=== PATIENT | male | born 1950 | race Caucasian/White ===

== ENCOUNTER → 2023-11-01 11:10 | Outpatient (REF) | payer MEDICARE, OTHER, SELFPAY | LOC: DHCBC HW 11:10 | PROVIDERS: ATTENDING PHYSICIAN Internal Medicine Cardiovascular Disease; FAMILY PHYSICIAN Family Medicine | DX: I77.89 Other specified disorders of arteries and arterioles (principal); I35.1 Nonrheumatic aortic (valve) insufficiency | CPT/HCPCS: 93306 ==

== ENCOUNTER → 2023-12-09 13:14 | Outpatient (REF) | payer MEDICARE, OTHER, SELFPAY | LOC: HWRAD 13:14 | PROVIDERS: ATTENDING PHYSICIAN Thoracic Surgery (Cardiothoracic Vascular Surgery); FAMILY PHYSICIAN Family Medicine | DX: I35.1 Nonrheumatic aortic (valve) insufficiency (principal) | CPT/HCPCS: 71275; 74174; Q9967 ==

== ENCOUNTER 2023-12-20 07:09 | Day surgery (SDC) | payer MEDICARE, OTHER, SELFPAY ==
[2023-12-20] VITALS (13 sets, daily range): BP systolic 97–142; BP diastolic 37–54; BMI 25.7
[2023-12-20] MEDS: NSS 237 ML IV (07:37)
--- NOTE | 2023-12-20 09:14 | ITS.CL.CATH ---
[facility] - Catheterization
Cardiac Catheterization
Procedure Report:
CARDIAC CATHETERIZATION REPORT
Date of Procedure: 12/20/2023
Referring: Albaro Reid MD
Indication: Severe aortic insufficiency with plan for AVR
HEMODYNAMIC DATA
AO: 126/52
LV: 126/19
LEFT VENTRICULOGRAPHY: Normal left ventricular wall motion with visually estimated EF 55-60%
ASCENDING AORTOGRAPHY: There is mild dilation of the aortic root. There is 4+ eccentric AI
CORONARY ANGIOGRAPHY
Dominance: Right
Left Main: Mild luminal irregularities
LAD: Moderately calcified vessel with 30-40% stenosis distal to the takeoff of the large D1. D1 has 50% ostial stenosis
Circumflex: Normal
RCA: Dominant with trivial luminal irregularities
Closure Device: None-the procedure was performed via the right radial artery. The Antoine's test was normal prior to the procedure.
Radiation (mGy): 271
DAP (cm2.Gy): 21.6
Fluoroscopy time: 4.1 minutes
CONCLUSIONS
1: Normal left ventricular function with EF 55-60%
2: Mild dilation of the aortic root with severe (4+) aortic insufficiency
3. Mild CAD as described
4. Will discuss results of procedure with care team
5. Long-term aspirin and statin given CAD. Goal LDL less than 70
Copy to: Albaro Reid MD, Olu Leal MD, Segundo Lyle,
Segundo Benitez MD, [facility], [facility]
[2023-12-20] MEDS: NSS 1000 IV (09:35)
== END 2023-12-20 12:06 | disposition home or self-care (01) ==
LOC: CATH 07:09
PROVIDERS: ATTENDING PHYSICIAN Internal Medicine Cardiovascular Disease; FAMILY PHYSICIAN Family Medicine; OTHER PHYSICIAN Internal Medicine Cardiovascular Disease
DX: I35.1 Nonrheumatic aortic (valve) insufficiency (principal); I77.810 Thoracic aortic ectasia; I25.10 Atherosclerotic heart disease of native coronary artery without angina pectoris; I25.84 Coronary atherosclerosis due to calcified coronary lesion; Z79.82 Long term (current) use of aspirin
CPT/HCPCS: 93458; 93567; C1894; Q9967

== ENCOUNTER → 2024-05-22 11:02 | Outpatient (REF) | payer MEDICARE, OTHER, SELFPAY | LOC: HWRCS 11:02 | PROVIDERS: ATTENDING PHYSICIAN Internal Medicine Cardiovascular Disease; FAMILY PHYSICIAN Family Medicine | DX: I35.1 Nonrheumatic aortic (valve) insufficiency (principal); I77.810 Thoracic aortic ectasia | CPT/HCPCS: 93306 ==

== ENCOUNTER 2024-06-25 04:56 | Inpatient (IN) | payer MEDICARE, OTHER, SELFPAY ==
--- NOTE | 2024-06-08 13:27 | CM ---
Met with and Mrs. Gonzáles in [facility]. He states prior to admission he resides with his spouse in a two story home without any steps to enter. He states he has a full flight of steps to get to bedroom/full bathroom. He has a powder room on the
first floor. He states prior to admission he was independent with ambulation and adls. He states he does not have any DME in the home. He states he has a prescription plan. The discharge plan is to return home with his spouse and a home visit by
the Transitional Care Nurse when medically stable.
We reviewed pre-op and post-op routines. We reviewed the shower instructions. He has the soap, written instructions and the Cardiothoracic Surgery Educational Booklet. We also reviewed the restrictions including sternal precautions and driving
restrictions. We discussed a home visit by the Transitional Care Nurse. He is agreeable to the visit. The plan is for AVR on Tuesday06/25/24.
[2024-06-08 13:31] LABS: Urine Albumin Negative (Neg - Trace); Urine Bilirubin Negative (Negative); Urine Character Clear (Clear); Urine Color Yellow; Urine Glucose Negative (Negative); Urine Ketone Negative (Negative); Urine Leukocyte Negative (Negative); Urine Nitrite Negative (Negative); Urine Occult Blood Negative (Negative); Urine Specific Gravity 1.005 (<1.030); Urine Urobilinogen Negative (Neg - 1+)
[2024-06-08 13:37] LABS: % Basophils 0.4 % (0-2); % Eosinophils 2.4 % (0-6); % Immature Granulocytes 0.2 % (0-0.5); % Lymphocytes 33.7 % (20.5-51.1); % Neutrophils 53.3 % (42.2-75.2); Absolute Eosinophils 0.1 10^3/uL (0-0.7); Absolute Lymphocytes 1.5 10^3/uL (1.2-3.4); Absolute Monocytes 0.5 10^3/uL (0.1-0.6); Absolute Neutrophils 2.4 10^3/uL (1.4-6.5); Hematocrit 41.8 % (39.0-52.0); Hemoglobin 14.5 g/dL (13.0-18.0); Mean Corp Hgb Conc. 34.7 g/dL (33.0-37.0); Mean Corpuscular Hgb 29.8 pg (27.0-31.0); Mean Corpuscular Volume 85.8 fL (80.0-94.0); Mean Platelet Volume 8.3 fL (7.4-10.4); Nucleated Red Blood Cells % 0 % (-); Platelet Count 209 10^3/uL (130-400); Red Blood Cell Count 4.87 10^6/uL (4.70-6.10); Red Cell Dist. Width 13.8 % (11.5-14.5); White Blood Cell Count 4.5 10^3/uL (4.8-10.8)
[2024-06-08 13:47] LABS: APTT 28.6 Sec (23.4-35.0); INR 1.11; PT 14.1 Sec (11.4-14.6)
[2024-06-08 13:58] LABS: Glycohemoglobin (HgbA1c) 5.2 % (4.0-5.6)
[2024-06-08 14:09] LABS: ALT (SGPT) 25 U/L (0-50); AST (SGOT) 32 U/L (17-59); Albumin 4.3 g/dl (3.5-5.0); Alkaline Phosphatase 71 U/L (38-126); Blood Urea Nitrogen 19 mg/dl (9-20); Calcium 9.5 mg/dl (8.4-10.2); Carbon Dioxide 29 mmol/L (22-30); Chloride 101 mmol/L (98-107); Direct Bilirubin 0.2 mg/dl (0.0-0.4); Glucose 80 mg/dl (70-99); Potassium 4.3 mmol/L (3.5-5.1); Sodium 139 mmol/L (135-145); Total Bilirubin 1.2 mg/dl (0.2-1.3); Total Protein 7.1 g/dl (6.3-8.2); eGFR > 60.00
[2024-06-25] VITALS (7 sets, daily range): BP systolic 98–151; BP diastolic 50–65
--- NOTE | 2024-06-25 06:05 | W.CVOR.SURPR ---
CVOR Surgeon Immed Pre Op
-
I have examined this patient prior to performance of the scheduled procedure.
The patient's condition is unchanged from the time of the dictated/written History and
Physical and the patient is able to undergo the scheduled procedure.
Sternotomy AVR (bio) + STEPHANY Clip
[2024-06-25] MEDS: LOPRESSOR 25 MG PO (06:10)
[2024-06-25] MEDS: MAGNESIUM OXIDE 500 MG PO (06:10)
[2024-06-25] MEDS: BACTROBAN 2% OINTMENT 1 APPLIC NASAL ×2 (06:10→19:02)
[2024-06-25] MEDS: PROTONIX 40 MG PO (06:10)
--- NOTE | 2024-06-25 06:40 | PTCARENOTE ---
PT VSS all meds taken, clipped & bathed with chg NPO since midnight, 2 showers at home
[2024-06-25 07:15] LABS: Urine Albumin Negative (Neg - Trace); Urine Bilirubin Negative (Negative); Urine Character Clear (Clear); Urine Color Yellow; Urine Glucose Negative (Negative); Urine Ketone Negative (Negative); Urine Leukocyte Negative (Negative); Urine Nitrite Negative (Negative); Urine Occult Blood Negative (Negative); Urine Specific Gravity 1.005 (<1.030); Urine Urobilinogen Negative (Neg - 1+); Urine pH 6.5 (5.0-9.0)
[2024-06-25 07:29] LABS: ACT+ - POC 107 Seconds (82-134)
[2024-06-25 08:58] LABS: B.E. - POC 4.8 mmol/L; Glucose - POC 139 mg/dl (70-99); HCO3 - POC 29 mmol/L (21-28); Hematocrit - POC 31 % PCV (42-52); Hemodilution- POC Yes; Hemoglobin Calculated - POC 10.7; Ionized Calcium - POC 1.09 mmol/L (1.15-1.33); O2 Saturation %Calculated-POC 99.9 % (94-98); PCO2 - POC 40 mmHg (35-48); PO2 - POC 277 mmHg (83-108); POC Comment CPB; Potassium - POC 4.2 mmol/L (3.5-5.1); Sodium - POC 139 mmol/L (136-145); pH - POC 7.47 (7.35-7.45)
[2024-06-25 09:00] LABS: ACT+ - POC 884 Seconds (82-134)
[2024-06-25 09:12] LABS: ACT+ - POC 669 Seconds (82-134)
[2024-06-25 09:19] LABS: B.E. - POC 3.4 mmol/L; Glucose - POC 144 mg/dl (70-99); HCO3 - POC 28 mmol/L (21-28); Hematocrit - POC 33 % PCV (42-52); Hemodilution- POC Yes; Hemoglobin Calculated - POC 11.3; Ionized Calcium - POC 1.09 mmol/L (1.15-1.33); O2 Saturation %Calculated-POC 99.9 % (94-98); PCO2 - POC 41 mmHg (35-48); PO2 - POC 318 mmHg (83-108); POC Comment CPB; Potassium - POC 4.6 mmol/L (3.5-5.1); Sodium - POC 139 mmol/L (136-145); pH - POC 7.44 (7.35-7.45)
[2024-06-25 09:29] LABS: ACT+ - POC 646 Seconds (82-134)
[2024-06-25 09:48] LABS: ACT+ - POC 539 Seconds (82-134)
[2024-06-25 09:52] LABS: B.E. - POC 3.2 mmol/L; Glucose - POC 136 mg/dl (70-99); HCO3 - POC 28 mmol/L (21-28); Hematocrit - POC 34 % PCV (42-52); Hemodilution- POC Yes; Hemoglobin Calculated - POC 11.5; Ionized Calcium - POC 1.11 mmol/L (1.15-1.33); O2 Saturation %Calculated-POC 99.7 % (94-98); PCO2 - POC 41 mmHg (35-48); PO2 - POC 196 mmHg (83-108); POC Comment WARM; Potassium - POC 4.7 mmol/L (3.5-5.1); Sodium - POC 140 mmol/L (136-145); pH - POC 7.44 (7.35-7.45)
[2024-06-25 09:54] LABS: ACT+ - POC 129 Seconds (82-134)
[2024-06-25 10:17] LABS: B.E. - POC 0.7 mmol/L; Glucose - POC 124 mg/dl (70-99); HCO3 - POC 25 mmol/L (21-28); Hematocrit - POC 32 % PCV (42-52); Hemodilution- POC Yes; Hemoglobin Calculated - POC 10.7; Ionized Calcium - POC 1.38 mmol/L (1.15-1.33); PCO2 - POC 40 mmHg (35-48); PO2 - POC 438 mmHg (83-108); POC Comment POST; Potassium - POC 4.2 mmol/L (3.5-5.1); Sodium - POC 140 mmol/L (136-145); pH - POC 7.41 (7.35-7.45)
--- NOTE | 2024-06-25 10:31 | W.PN.CT.SURG ---
CT Surgery Operative Note
-
CARDIAC SURGERY OPERATIVE REPORT
Preoperative Diagnosis: Aortic valve insufficiency, severe, with left ventricular dilation
Postoperative Diagnosis: Same, and depressed left ventricular function
Procedure(s) Performed:
1. Standard sternotomy with aortic and right atrial cannulation
2. Surgical aortic valve replacement [29 mm Medtronic Avalus]
3. Left atrial appendage exclusion [35 mm clip]
4. Placement of temporary atrial and ventricular pacing wires
5. Transesophageal echocardiogram
Date of Surgery: 06/25/2024
Comorbidities:
1. Severe aortic valve insufficiency secondary to prolapse leaflet
2. Dilated left ventricle reduced left ventricular ejection fraction
3. Acute on chronic congestive systolic and diastolic heart failure with dilated LV and reduced cardiac index of 1.2 after induction of anesthesia
4. Diverticulosis
5. Baseline hypotension intolerant of additional GDMT
6. Gout
7. Mild dilation of aortic root
Attending Surgeon: Albaro Reid MD, MS
Assistants: Yvonne Smith PA-C (present and necessary to first dyer, retraction, suction, exposure, suture management, and wound closure under my direction)
Anesthesiology: Ciaran Hernandez MD and Pelon Chamberlain CRNA
Scrub and Circulating RNs: Raf Cruz, RN, Yara Nguyen, LAVON
Cardiac Sonographer: Renate Joshua CCP
Anesthesia: GETA
EBL: per perfusion records
Products: None, received 469cc of scavenged cell-saver blood from the field
CPB Time: 76 minutes
Aortic Cross Clamp Time: 54 minutes
Indication(s) for Procedures: This is a 73-year-old male with severe aortic valve insufficiency being followed by my office and cardiology. He was initially booked for December 2023 however given that his LV dimensions were preserved and LV function was
preserved, multidisciplinary team discussion was to hold off for now. He recently had worsening LV dimensions on TTE and so I offered surgical intervention in the form of surgical aortic valve replacement. He and his agreed and so we proceeded.
Aortic Valve Description: Thin, noncalcified trileaflet aortic valve, prolapse of the left coronary cusp with fenestrations towards the left right commissure, prolapse of the right coronary cusp as well although not as severe. Left and right
coronary ostia the normal anatomic positions with appropriate heights.
Findings: His left ventricular ejection fraction preoperatively was approximately 45%. His LV was mild dilated with severe eccentric aortic valve insufficiency. His cardiac index after induction was approximately 1.2 however he mild to moderate
degree of TR as well. Following his aortic valve replacement without significant inotropic support, his index had improved to 1.9 on just Levophed. EF remained about the same at 45%. LV dimensions remain the same. His aortic valve was replaced
with a total of 17 nonpledgeted 2 Ethibond sutures placed circumferentially from his LVOT through annulus through sewing cuff. It secured a [address] using core knots. His left atrial appendage was verified to be free of any thrombus
or debris preoperatively and found to be totally occlusive postoperatively with a 35 mm clip applied flush to the base. He did not require any inotropic support other than Levophed, he initially required AV pacing but then regained his sinus rhythm
in the 60s. There was no paravalvular leak on transesophageal echocardiography and mean gradient across the new biological valve was 6 mmHg. All leaflets had normal excursion. No products were transfused other than approximately 469 cc of
scavenged blood from the field run through a Cell Saver..
Specimen(s): Aortic valve leaflets.
Prosthesis:
1. 29 mm Medtronic biological valve, Avaulus Ultra, SN [id number]
2. Left atrial appendage clip, serial #[id number]
Description of Procedure: The patient was taken to the operating room. Their identity and procedure to be performed were verified and they were positioned supine on the operating table. Induction via general anesthesia with endotracheal intubation
was performed and central venous access and arterial monitoring were inserted. A preoperative transesophageal echocardiogram was performed to assess cardiac function and valvular function. The patient was then prepped and draped from chin to feet in
a sterile fashion. A preoperative time-out was performed with all members of the team present. A midline chest incision was performed along with median sternotomy. The innominate vein was isolated. Full heparinization was given (a total of 40,000
units). We created a pericardial well. The aortic cannulation site was chosen where it was soft, pliable, and free of calcium. Cannulation was performed with an arterial cannula in the ascending aorta and a triple-stage venous cannula through the
right atrial appendage. The arterial cannula line had an appropriate bounce and correlating pressures with test dosing. The ACT was confirmed to be over 400 and retrograde autologous priming was performed before commencing cardiopulmonary bypass. A
retrograde coronary sinus catheter was placed under FAIZAN and manual guidance via the right atrium given the degree of insufficiency. The pulmonary artery was away from the aorta to facilitate a clamp site and aortotomy. A left ventricular
vent was placed at the right superior pulmonary vein and secured. The aortic cross-clamp was placed after decreasing the flow on the bypass and mean arterial pressure. They aorta was then opened and stay sutures were placed in order to facilitate
visualization of the coronary ostium and valve. A total of 800 cc of retrograde cardioplegia was given with additional 400 cc of cardioplegia down each ostium antegrade using Del-Nido cardioplegia solution was given and planned for re-dosing every
75 minutes as necessary. Retrograde cardioplegia was visualized emanating from bilateral ostia. There was rapid electro-mechanical arrest of the heart at approximately 500cc of cardioplegia. The left ventricle was observed for distention on
echocardiogram and manual palpation. Cold slush was placed into a sponge and topically on the RV while we systemically cooled to 34 degrees centigrade. The heart was then rotated medially and the left atrial appendage was sized to a 35 mm clip
which was applied flush to the base.
Carbon dioxide was used to flood the field. The location of both left and right coronary vessels were visualized in the root.The leaflets were excised and sent for pathological assessment. A total of 17 Non-pledgeted 2-0 ethibond inverted annular
sutures were placed [id number] circumferentially. These were brought through the sewing cuff of the prosthetic valve which as then parachuted into place. The left and right coronary ostia were visualized and were unobstructed by the valve. A
Cor-Knot device was used to secure the annular sutures. The valve was inspected and was well seated. The aortotomy was approximated with 4-0 prolene in two layers. De-airing maneuvers were performed and temporary bipolar ventricular pacing wires
were placed on the base of the right ventricle along with atrial pacing wires at the SVC right atrial junction. A root vent was then inserted for de-airing. The patient was placed in a Trendelenburg position and flows on bypass were lowered. The
aortic cross clamp was removed and flows were slowly brought back up. The aortotomy appeared hemostatic. The retrograde catheter was removed and pursestring tied down and oversewn. Transesophageal echocardiography revealed no paravalvular leak and
appropriate prosthetic function. Once de-airing was satisfactory, the left ventricular and root vents were removed. After verifying acceptable parameters, we initiated weaning from cardiopulmonary bypass. Once we were off cardiopulmonary bypass, the
venous cannula was clamped and removed. A test dose of protamine was administered and the patient was monitored for any adverse reaction before resuming protamine. Once half of the protamine dose was delivered, pump suckers were turned off and the
systolic blood pressure was lowered for aortic decannulation. The aortic cannula was removed and pursestrings were tied down. All cannulation sites were oversewn with a 4-0 prolene. The aortotomy suture line was inspected and hemostasis was
confirmed. Mediastinal hemostasis was obtained. Two 24Fr Rohith drains were placed within the pericardium. The sternum was approximated with 4#7 single and 3 #8 double stainless steel wires. Fascia was approximated with #1 vicryl suture. The
subcutaneous, dermis and epidermis were closed in layers in a running fashion. The skin wound was cleansed and dressed.
All instrument, sponge, and needle counts were confirmed to be correct x 2 at the end of the operation. The patient was transferred to the cardiac intensive care unit in critical but stable condition.
I, Dr. Albaro Reid, was present, scrubbed for, and performed all critical elements of this procedure.
Albaro Reid MD, MS
Cardiothoracic Surgeon
[facility]
This operative dictation was created using the [employer] dictation system. Please excuse any grammatical, typographical, or 'sound alike' errors
--- NOTE | 2024-06-25 10:33 | W.PN.CD ---
Addendum entered and electronically signed by Christopher Clark MD 06/25/24 14:58:
I saw and examined the patient.
The PRIMER BOXER's note was reviewed and I agree with the note.
Comment: Lungs clear, no cardiac rub, EKG good. Chest tube drainage has slowed. Seems to be doing well. We hope LVEF improves. If LVEF stays abnormal then GDMT will be added, can add some but fresh post-op will try and not add RAAS-I early.
Original Note:
Today's Communication / Plan
-
Postoperative management per CT surgery
Follow telemetry
Impression / Plan
-
BACKGROUND: 73M with severe aortic regurgitation and dilated aortic root with recent TTE that demonstrated progressive dilation of his LV with normal systolic function who presented for AVR
Primary Mill Representative: Dr. Leal
IMPRESSION/PLAN:
Severe AI and aortic root dilation S/P surgical aortic valve replacement [29 mm Medtronic Avalus] with STEPHANY clip
-Pre LVEF 45% & post LVEF 45% without RWMA
-No blood products (469 mL cell saver), on Levophed at 4
-EKG with sinus rhythm
-Follow telemetry
NICM
-TTE 64% 05/22/2024, pre SAVR 45%
-Limited echocardiogram prior to discharge
-Consider GDMT after recovery
Non-obstructive CAD, LAD moderately calcified with 30-40% stenosis distal to the takeoff of a large D1, D1 with 50% ostial stenosis
Dyslipidemia, on atorvastatin
SUBJECTIVE:
Intubated and sedated. Operative notes reviewed.
Physical Exam
Vital Signs/Labs
Vital Signs
Temp Pulse Resp BP Pulse Ox
97.6 F 65 18 151/61 96
06/25/24 06:19 06/25/24 06:19 06/25/24 06:19 06/25/24 06:19 06/25/24 06:19
06/24/24 06/25/24 06/26/24
06:59 06:59 06:59
Actual Weight 74.5 kg
PT 14.1 Sec (11.4-14.6) 06/08/24 12:06
INR 1.11 06/08/24 12:06
APTT 28.6 Sec (23.4-35.0) 06/08/24 12:06
Physical Exam
Constitutional: No acute distress and Comfortable
EENT: Anicteric and Moist mucous membranes
Cardiovascular: Rhythm & rate is regular and Pedal edema is absent
Respiratory: Lungs clear to auscul. and Other (Mechanical ventilation)
GI: Soft, Distention absent, Flat, Non tender and Normal bowel sounds
Neuro/Psych: Other (sedated)
Other: Skin (warm & dry without edema)
Data Reviewed
-
Date of Service: June 25, 2024
[2024-06-25 10:55] LABS: Glucose - Point of Care 128 mg/dl (70-99)
[2024-06-25 10:58] LABS: HCO3 25.2 mmol/L (21-28); Ionized Calcium 1.21 mMOL/L (1.15-1.33); PCO2 38 mmHg (35-48); PO2 184 mmHg (83-108); Sodium 134 mMOL/L (136-145); pH 7.43 (7.35-7.45)
[2024-06-25 10:59] LABS: O2 Therapy vent
--- NOTE | 2024-06-25 10:59 | CM ---
Chart reviewed. Patient is in the OR today. Patient is independent of ADLS, lives with his in a 2 STH, 0 HORACE, 0 DME. Plan is for the patient to return home with CT Transitional RN. CM to follow
[2024-06-25 11:00] LABS: Hematocrit 34.9 % (39.0-52.0); Hemoglobin 12.3 g/dL (13.0-18.0); Platelet Count 141 10^3/uL (130-400)
[2024-06-25 11:01] LABS: Mixed Venous O2 Saturation 75.3 %
[2024-06-25 11:02] LABS: ACT-LR - POC 158 Seconds (116-155)
[2024-06-25] MEDS: NOVOLIN R INSULIN INFUSION 100 IV (11:10)
[2024-06-25 11:11] LABS: Blood Urea Nitrogen 18 mg/dl (9-20); Estimated Creatinine Clearance 93 ml/min; Glucose 130 mg/dl (70-99); Magnesium 2.8 mg/dl (1.6-2.3)
[2024-06-25] MEDS: NSS 500 IV (11:11)
[2024-06-25] MEDS: LIPITOR PO (11:11)
[2024-06-25] MEDS: ANCEF 10 IV ×2 (11:11)
[2024-06-25] MEDS: NEURONTIN PO ×2 (11:12→15:24)
[2024-06-25 11:15] LABS: INR 1.58; PT 18.7 Sec (11.4-14.6)
[2024-06-25 11:16] LABS: APTT 33.5 Sec (23.4-35.0)
--- NOTE | 2024-06-25 11:19 | PTCARENOTE ---
Received pt from CVOR at 1040; pt intubated and sedated; NSR on monitor and VSS; Epicardial A/V wires set to DDD 30/10/10/0.5/2 and no pacing notes; Ron Platt floated to 478, Left A-Line and PIV x1 al lines leveled and zeroed; Levo and
Precedex infusing see flow sheet for details; Insulin per Glycemic protocol see flow sheet for details; Lungs diminished; CT x2 to -20 wall suction, crepitus in upper chest area and no tidaling noted; hypoactive bowel sounds; Ho catheter draining
clear yellow urine; weak lower extremity pulses noted and positive radial pulses; no edema; all surgical site C/D/I; see nursing documentation for further details.
CI 2.13
CO 4.05
SVR 1303
[2024-06-25] MEDS: PROTAMINE 5 MG IV (11:30)
[2024-06-25 11:42] LABS: Fibrinogen 202 MG/DL (199-459)
[2024-06-25 11:45] LABS: ACT-LR - POC 145 Seconds (116-155)
[2024-06-25 11:52] LABS: ACT-LR - POC 129 Seconds (116-155)
[2024-06-25 11:53] LABS: ACT-LR - POC 141 Seconds (116-155)
[2024-06-25 11:54] LABS: ACT+ - POC 126 Seconds (82-134)
[2024-06-25] MEDS: DDAVP 55.5 MCG IV (11:55)
[2024-06-25] MEDS: PROTAMINE 7.5 MG IV (12:03)
[2024-06-25 12:11] LABS: Glucose - Point of Care 145 mg/dl (70-99)
--- NOTE | 2024-06-25 12:14 | CON.INTV ---
Consultation
Consultation Request
Date/Time Consultation Requested: 06/25/2024
Date/Time Consultation Performed: 06/25/2024
Requesting Provider: Dr. Reid
Performing Provider: Dr. Gerald Alvarado
Reason for Consultation: Status post aortic valve
Medical History
-
History of Present Illness:
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 Surgery underwent on 06/25/[address] Reid without
complications. Currently in the critical care unit, intubated on mechanical ventilation.
Unable to provide history. Records reviewed.
Past Medical History
Past Medical History: Other (See assessment and )
Social History
Tobacco: Non-smoker
Alcohol: Other (Rarely)
Employment: Retired (Psychologist)
Family History
Family History: Reviewed & Not Pertinent
Allergies / Home Medications
Allergies
Allergy/AdvReac Type Severity Reaction Status Date / Time
No Known Allergies Allergy Unverified 06/06/24 08:14
Home Medications
�Medication �Instructions �Recorded �Confirmed �Last Taken �Type
Glucosamine Chondroitin 1 tab PO DAILY 05/25/23 06/25/24 06/17/24 07:00 History
wxamugyy-mh-uxanb 300 mcg-K 60 1 tab PO QPM 05/25/23 06/25/24 06/17/24 19:00 History
mcg-lycop 600 mcg-lutein 300 mcg
tablet (Centrum Silver Men)
hypochlorous acid 0.01 %-sodium 1 spray topical DAILY 12/15/23 06/25/24 06/24/24 07:00 History
chloride topical spray (Avenova)
propylene glycol 0.6 % eye drops 1 drp ophthalmic (eye) QID 12/15/23 06/25/24 06/17/24 History
(Systane Complete)
psyllium 2 tsp PO .MID AFTERNOON 12/15/23 06/25/24 06/17/24 History
aspirin 81 mg tablet,delayed 81 mg PO DAILY #1 tab 12/20/23 06/25/24 06/24/24 07:00 Rx
release
atorvastatin 40 mg tablet 40 mg PO DAILY #90 tabs 12/20/23 06/25/24 06/24/24 19:00 Rx
Review of Systems
-
Unable to Obtain full review of systems at this time due to: Patient Intubation
Vitals / Labs / Diagnostic Testing
Vital Signs
Temp Pulse Resp BP Pulse Ox
97.1 F 63 14 151/61 97
06/25/24 10:56 06/25/24 10:55 06/25/24 10:56 06/25/24 06:19 06/25/24 11:53
Lab Data
06/25/24 10:39
Laboratory Results
06/25/24
10:39
PT 18.7 H
INR 1.58
APTT 33.5
pH 7.43
pCO2 38
pO2 184 H
HCO3 25.2
O2 Delivery Level vent
Diagnostic Testing:
Physical Exam
-
HEENT: Normocephalic and Other (ET tube in place without secretion)
Cardiovascular: Regular Rhythm
Respiratory: Clear and Accessory Resp Muscle Use
GI: Soft and Non Distended
Neurology: Other (Sedated, mechanical ventilation. Able to move 4 extremities. Has respiratory effort)
Skin: Warm
General: Comfortable
Assessment
-
Status post AVR 06/25/2024
Postoperative mechanical ventilation
Postoperative anemia
Assessment and plan:
Nonischemic cardiomyopathy ejection fraction 45% 05/22/2024.
History of nonobstructive coronary artery disease
Hyperlipidemia
Gout
Aortic root aneurysm
Diverticulosis
History of headaches
Plan recommendations:
He is doing well postop-currently on mechanical ventilation and appears comfortable.
ABG reviewed: Adequate oxygenation and ventilation
Continue SIMV mode with no change
Spontaneous breathing trial per protocol once sedation wears off.
Anemia noted-no evidence of acute bleeding
Follow H&H serially
Hemodynamics -on low-dose Levophed
PA catheter and arterial line in place
Cardiac index adequate
Adequate urinary output, Ho in place for
Normal renal function
Chest tube with no excessive drainage-no air leak.
Bloody chest tube output noted. Will continue to monitor closely.
Chest x-ray reviewed: With no pneumothorax or fluid collections.
Remain nothing by mouth
Head of the bed elevation
Glycemic control per protocol
DVT prophylaxis when safe from the surgical perspective.
Critical care statement: A total of 32 minutes of critical care time was provided for this patient today. This includes management of unstable vital signs, evaluation of the patient at bedside, reviewing the patient's pertinent medical records
including ventilator settings, arterial blood gases, radiographs, microbiology, laboratory evaluations and discussion with primary team, critical care nursing, and respiratory therapy.
[2024-06-25 12:21] LABS: ACT-LR - POC 147 Seconds (116-155); ACT-LR - POC 152 Seconds (116-155)
[2024-06-25] MEDS: REFRESH EYE DROPS (PF) OPHTH ×2 (12:29→18:08)
--- NOTE | 2024-06-25 12:32 | PTCARENOTE ---
Pt oozing from Chest tubes total 500mls since arrival into CVICU; Dr Reid at bedside, Protamine x2 given, 1 unit of Platelets and DDATP given; awaiting FFP x2 from lab to be given.
--- NOTE | 2024-06-25 13:18 | PTCARENOTE ---
2 units FFP transfused without difficulties.
[2024-06-25 13:22] LABS: Glucose - Point of Care 153 mg/dl (70-99)
--- NOTE | 2024-06-25 13:45 | PTCARENOTE ---
Telemetry leads changed and CHG bath provided.
[2024-06-25 14:02] LABS: Glucose - Point of Care 123 mg/dl (70-99)
[2024-06-25 15:01] LABS: Glucose - Point of Care 111 mg/dl (70-99)
--- NOTE | 2024-06-25 15:21 | PTCARENOTE ---
Pt placed on CPAP.
[2024-06-25 15:24] LABS: Hematocrit 32.8 % (39.0-52.0); Hemoglobin 11.5 g/dL (13.0-18.0); Platelet Count 192 10^3/uL (130-400)
[2024-06-25] MEDS: PACERONE PO (15:24)
[2024-06-25] MEDS: TYLENOL PO (15:24)
[2024-06-25] MEDS: LACTATED RINGERS 250 ML IV (15:32)
[2024-06-25 15:50] LABS: Glucose - Point of Care 94 mg/dl (70-99)
[2024-06-25] MEDS: OFIRMEV 100 IV (15:52)
[2024-06-25 15:58] LABS: B.E. 3.5 mmol/L; HCO3 26.1 mmol/L (21-28); Ionized Calcium 1.17 mMOL/L (1.15-1.33); O2 Saturation % 99.7 % (94-98); PCO2 32 mmHg (35-48); PO2 191 mmHg (83-108); Potassium 3.7 mMOL/L (3.5-5.1); Sodium 139 mMOL/L (136-145); pH 7.52 (7.35-7.45)
--- NOTE | 2024-06-25 16:04 | PTCARENOTE ---
ABGs reviewede with CVNP; Pt extubated and placed on 6LNC.
[2024-06-25] MEDS: CALCIUM GLUCONATE 100 IV ×2 (16:09→20:45)
[2024-06-25] MEDS: KCL 50 IV ×2 (16:13→17:07)
[2024-06-25] MEDS: ANCEF 5 IV ×2 (16:14→23:04)
[2024-06-25] MEDS: LOW STRENGTH ASPIRIN 81 MG PO (17:07)
[2024-06-25] MEDS: ZOFRAN 4 MG IV (17:07)
[2024-06-25 18:03] LABS: Glucose - Point of Care 123 mg/dl (70-99)
[2024-06-25] MEDS: DILAUDID 0.25 MG IV (19:03)
[2024-06-25] MEDS: SENOKOT-S PO (19:54)
[2024-06-25 20:00] LABS: Glucose - Point of Care 137 mg/dl (70-99)
--- NOTE | 2024-06-25 20:00 | PTCARENOTE ---
Received pt from [facility]. pt resting comfortably in bed s/p AVR/STEPHANY clip. pt is AAOx4, states pain is 5/10, see MAR. NSR on monitor, VSS. heart sounds audible, radial and DP pulses palpable, no edema noted, temp epicardial AV wires set to DDD, A-
rate of 30, MA of 10, Mv of 0.5, V-rate of 30, MA of 10, Mv of 2. lungs diminished throughout, spo2 07% on 4 LNC, x2 MS CT to -20 wall suction, no air leaks, no tidaling, crepitus present on right and let side of upper chest, care team aware.
hypoactive BS x4 quadrants, abdomen soft non tender, pt complains of indigestion, CVPA made aware, awaiting orders. pt voiding clear yellow urine via salguero catheter. surgical site maintained. right IJ cordis, swan at 48, left radial a-line, and PIV
all maintained, leveled, and zeroed. levophed and insulin gtt infusing. call ge within reach. will continue to monitor.
[2024-06-25] MEDS: MYLICON 80 MG PO (20:45)
[2024-06-25] MEDS: ROXICODONE 5 MG PO (21:01)
[2024-06-25] MEDS: NEURONTIN 100 MG PO (22:00)
[2024-06-25] MEDS: REFRESH EYE DROPS (PF) 1 DROPS OPHTH (22:01)
[2024-06-25] MEDS: TYLENOL 1000 MG PO (22:01)
[2024-06-25] MEDS: FLEXERIL 5 MG PO (22:04)
[2024-06-25 22:09] LABS: Glucose - Point of Care 114 mg/dl (70-99)
[2024-06-25] MEDS: DILAUDID 0.5 MG IV (23:04)
[2024-06-26] VITALS (24 sets, daily range): BP systolic 100–127; BP diastolic 61–87; PULSE 81–85; O2SAT 94–95; BMI 24.8
--- NOTE | 2024-06-26 | PTCARENOTE ---
Pt assessment unchanged. NSR on monitor. VSS. on going pain management. call ge within reach. will continue to monitor.
[2024-06-26 00:11] LABS: Glucose - Point of Care 97 mg/dl (70-99)
[2024-06-26] MEDS: ROXICODONE 5 MG PO ×4 (01:03→19:22)
[2024-06-26] MEDS: DILAUDID 0.25 MG IV (01:18)
--- NOTE | 2024-06-26 01:20 | PTCARENOTE ---
on going pain management for pt, regardless pain is remaining mostly 5/10. SBP has increased, 120-140 via a-line and 120-125 via BP cuff. pt received 5mg of romario for pain at 0103. Due to pain and increased SBP 2.5mg of Dilaudid was also administered
at 0118, per CVPA. will continue to monitor.
[2024-06-26 02:07] LABS: Glucose - Point of Care 121 mg/dl (70-99)
[2024-06-26 03:12] LABS: Hematocrit 31.3 % (39.0-52.0); Hemoglobin 10.9 g/dL (13.0-18.0); Mean Corp Hgb Conc. 34.8 g/dL (33.0-37.0); Mean Corpuscular Volume 86.2 fL (80.0-94.0); Mean Platelet Volume 8.9 fL (7.4-10.4); Platelet Count 167 10^3/uL (130-400); Red Blood Cell Count 3.63 10^6/uL (4.70-6.10); Red Cell Dist. Width 13.8 % (11.5-14.5); White Blood Cell Count 14.4 10^3/uL (4.8-10.8)
[2024-06-26 03:19] LABS: Mixed Venous O2 Saturation 74.3 %
[2024-06-26 03:23] LABS: INR 1.32; PT 16.2 Sec (11.4-14.6)
[2024-06-26 03:43] LABS: Blood Urea Nitrogen 20 mg/dl (9-20); Calcium 9.2 mg/dl (8.4-10.2); Carbon Dioxide 26 mmol/L (22-30); Chloride 105 mmol/L (98-107); Estimated Creatinine Clearance 93 ml/min; Glucose 117 mg/dl (70-99); Potassium 4.5 mmol/L (3.5-5.1); Sodium 142 mmol/L (135-145); eGFR > 60.00
--- NOTE | 2024-06-26 04:00 | PTCARENOTE ---
on going pain management. labs drawn and sent. EKG obtained. CHG wipe and salguero care provided. per CVPA, pt delined. call ge within reach. will continue to monitor.
[2024-06-26 04:02] LABS: Glucose - Point of Care 123 mg/dl (70-99)
--- NOTE | 2024-06-26 05:02 | W.PN.CT ---
Today's Communication / Plan
-
Plan:
-No major issues overnight. Hemodynamically and neurologically intact
-Successfully extubated on 06/25/24 @ 1600
-Weaned off Levophed gtt last night @ 2130, remains on insulin gtt protocol
-Last CI 3.42, MVO2 74.3%, U/O since OR 1560 mL
-Monitor chest tube drainage: 2meds 195/885
-Cont. current meds (ASA, Amiodarone, Atorvastatin, Toprol XL)
-D/C'd swan and a-line this AM @ 0400
-D/C'd salguero catheter @ 0600
-Tele phase once of insulin gtt today
-Maintain cordis
-Maintain temporary A/V wires
-Encourage use of IS
-Wean off of O2 as tolerated
-OOB into chair/Ambulate
Assessment / Plan
-
Assessment:
-S/P Sternotomy/Surgical aortic valve replacement [29 mm Medtronic Avalus]/Left atrial appendage exclusion [35 mm clip], by Dr. Reid, 06/25/24, pod#1
-Severe aortic valve insufficiency secondary to prolapse leaflet
-Dilated left ventricle reduced left ventricular ejection fraction, 45-50% per intraop FAIZAN
-Acute on chronic congestive systolic and diastolic heart failure with dilated LV and reduced cardiac index of 1.2 after induction of anesthesia
-Mild-moderate TR
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
-Diverticulosis
-Baseline hypotension intolerant of additional GDMT
-Gout
-Headaches
-S/p Biopsy of forehead lesion
-Acute postop blood loss/anemia
-Acute postop coagulopathy (transfused 1 {5 pk} plts, DDAVP, 2u FFPs)
-Intraop Cardiogenic shock (CI 1.2 after induction of anesthesia)
-Acute postop atelectasis
-Acute postop hypovolemia with subsequent hypervolemia
Discussed patient care with: Cardiology, Nursing, Respiratory Therapy, Pharmacy and Care Team
Subjective
Procedure
S/P Sternotomy/Surgical aortic valve replacement [29 mm Medtronic Avalus]/Left atrial appendage exclusion [35 mm clip], by Dr. Reid, 06/25/24
-
Date of Service: June 26, 2024
Pt c/o incisional pain, otherwise feels well
Objective Data
-
Lab Results
06/26/24 02:45
06/26/24 02:45
PT 16.2 Sec (11.4-14.6) H 06/26/24 02:44
INR 1.32 06/26/24 02:44
APTT 33.5 Sec (23.4-35.0) 06/25/24 10:39
Vital Signs
Vital Signs
Temp Pulse Resp BP Pulse Ox
98.8 F 76 19 112/74 95
06/26/24 04:00 06/26/24 04:15 06/26/24 04:15 06/26/24 04:00 06/26/24 04:20
CT Intake/Output/Weight
06/25/24 06/25/24 06/26/24
06:59 18:59 06:59
Intake Total 2260.3 / 2673.7 413.4 / 2673.7
Output Total 1670 / 2435 765 / 2435
Balance 590.3 / 238.7 -351.6 / 238.7
SaO2: 95 (2L)
Physical Exam
-
General: Awake, Oriented and AOx3
Cardiovascular: Regular rate & rhythm, No Murmurs, No Rub and No Gallop
Respiratory: Decreased Breath Sounds (at bases, otherwise clear)
Sternum: Stable
Incision: Clean, Dry, Intact and Dressing Intact
Extremities: Other (+trace edema)
Data Reviewed
-
Lab Results: Results Reviewed
Medications: Active Meds Reviewed
Chest X-Ray: Report Reviewed and Image Reviewed
ECG: Report Reviewed and Image Reviewed
[2024-06-26] MEDS: TYLENOL 1000 MG PO ×3 (05:03→22:26)
[2024-06-26 06:04] LABS: Glucose - Point of Care 91 mg/dl (70-99)
--- NOTE | 2024-06-26 07:11 | W.PN.ANS.POP ---
Anesthesia Post Operative
- Anesthesia Post Op Note
Vital Signs Stable-See Nursing Note: Yes
Airway Patent: Yes
Adequate Pain Control: Yes
Change in Mental Status: No
Current Postoperative Nausea & Vomiting: No
Anesthesia Complications: No
General Anesthetic Recall: No
Unplanned Admission: No
Post Op Hydration Adequate: Yes
- -
Pt awake and alert, resting comfortably with no anesthesia related c/o at time of post op visit.
--- NOTE | 2024-06-26 07:30 | PTCARENOTE ---
Assumed care of patient from police shift commander RN. AAO x 3 C/o sternal discomfort but otherwise denies complaint. SR on monitor. Epicardial wire to back up DDD 30. No pacing noted at this time. Room air 94%, Lungs decreased bilaterally t/o. Chest
tubes x 2 to - 20 cm suction. No air leaks noted. Pt does have crepitus in his upper chest bilaterally. Sternal incision well approximated with surgical adhesive. Some erythema noted around incision borders. Abdomen round, soft, with hypoactive
bowel sounds noted. Denies nausea. occasional belching noted. Due to void. Pulses palpable. No edema appreciated. Insulin infusing per glycemic protocol.
--- NOTE | 2024-06-26 08:08 | W.PN.CD ---
Today's Communication / Plan
-
Continue routine post op care
GDMT after recovery
Impression / Plan
-
BACKGROUND: 73M with severe aortic regurgitation and dilated aortic root with recent TTE that demonstrated progressive dilation of his LV with mildly reduced systolic function 45%, who presented for AVR.
Primary Anesthesiologist Attending: Dr. Leal
IMPRESSION/PLAN:
Severe AI and aortic root dilation S/P surgical aortic valve replacement [29 mm Medtronic Avalus] with STEPHANY clip
-Pre LVEF 45% & post LVEF 45% without RWMA
-No blood products (469 mL cell saver)
-EKG with sinus rhythm
-Follow telemetry
NICM
-TTE 64% 05/22/2024, pre SAVR 45%
-Limited echocardiogram prior to discharge
-GDMT after recovery
Non-obstructive CAD, LAD moderately calcified with 30-40% stenosis distal to the takeoff of a large D1, D1 with 50% ostial stenosis
Dyslipidemia
- on atorvastatin
SUBJECTIVE:
Feeling fatigued and tired after surgery, lightheaded and dizzy
Physical Exam
Vital Signs/Labs
Vital Signs
Temp Pulse Resp BP Pulse Ox
98.8 F 83 12 115/73 94
06/26/24 04:00 06/26/24 05:05 06/26/24 06:00 06/26/24 05:00 06/26/24 06:00
06/25/24 06/26/24 06/27/24
06:59 06:59 06:59
Actual Weight 164 lb 3.91 oz 167 lb 8.821 oz
06/26/24 02:45
06/26/24 02:45
PT 16.2 Sec (11.4-14.6) H 06/26/24 02:44
INR 1.32 06/26/24 02:44
APTT 33.5 Sec (23.4-35.0) 06/25/24 10:39
Magnesium 2.0 mg/dl (1.6-2.3) 06/26/24 02:45
Physical Exam
Constitutional: No acute distress and Comfortable
EENT: Anicteric
Cardiovascular: Rhythm & rate is regular and Pedal edema is absent
Respiratory: Respiratory effort normal and Lungs clear to auscul.
GI: Soft
Neuro/Psych: Alert and Oriented
Data Reviewed
-
Date of Service: June 26, 2024
Medical Decision Making: Reviewed Test Results
EKG: Tracing Personally Visualized and interpreted (sr)
Echo: Report Reviewed by me
Labs: Labs Reviewed by me
[2024-06-26 08:17] LABS: Glucose - Point of Care 114 mg/dl (70-99)
[2024-06-26] MEDS: PROTONIX 40 MG PO (08:19)
[2024-06-26] MEDS: LIPITOR 40 MG PO (08:19)
[2024-06-26] MEDS: LOW STRENGTH ASPIRIN 81 MG PO (08:19)
[2024-06-26] MEDS: ANCEF 5 IV (08:19)
[2024-06-26] MEDS: LIDOCAINE 4% PATCH 1 PATCH TOPICAL (08:19)
[2024-06-26] MEDS: NEURONTIN 100 MG PO ×3 (08:20→22:26)
[2024-06-26] MEDS: MAGNESIUM OXIDE 500 MG PO ×2 (08:20→20:05)
[2024-06-26] MEDS: REFRESH EYE DROPS (PF) 1 DROPS OPHTH ×2 (08:20→22:28)
[2024-06-26] MEDS: PACERONE 200 MG PO ×3 (08:20→22:26)
[2024-06-26] MEDS: SENOKOT-S 1 TABLET PO ×2 (08:20→20:05)
[2024-06-26] MEDS: MYLICON 80 MG PO (08:20)
[2024-06-26] MEDS: BACTROBAN 2% OINTMENT 1 APPLIC NASAL ×2 (08:20→19:24)
[2024-06-26] MEDS: TOPROL XL PO (08:21)
--- NOTE | 2024-06-26 10:15 | PTCARENOTE ---
Glycemic protocol discontinued as per PA order.
[2024-06-26] MEDS: NSS IV (10:32)
--- NOTE | 2024-06-26 10:37 | W.PN.INTV ---
Today's Communication / Plan
Recommendations
Continue postoperative care
Follow chest tube output
Analgesia
Increase activity as able
Sign off
Assessment
-
Status post AVR 06/25/2024
Postoperative mechanical ventilation
Postoperative anemia
Assessment and plan:
Nonischemic cardiomyopathy ejection fraction 45% 05/22/2024.
History of nonobstructive coronary artery disease
Hyperlipidemia
Gout
Aortic root aneurysm
Diverticulosis
History of headaches
Plan recommendations:
Doing well postoperative day 1
Pain is controlled
Lungs are relatively clear
Incentive spirometry encouraged
Increase activity per protocol
Anemia noted-no evidence of acute bleeding
Follow H&H serially
Hemodynamics -stable overnight.
Off vasopressors
Arterial line and PA catheter - discontinued
Renal function is normal.
Follow daily electrolytes
Chest tube with no excessive drainage-no air leak.
Bloody chest tube output noted. Will continue to monitor closely.
Chest x-ray 06/26/2024 reviewed: With no pneumothorax or fluid collections.
Remain nothing by mouth
Head of the bed elevation
Glycemic control per protocol
DVT prophylaxis when safe from the surgical perspective.
Patient has been transferred to telemetry
Sign off
Subjective Dataa
Subjective Data
Date of Service:
Date of Service: June 26, 2024
Chief Complaint: Insole Reinforcer Follow Up (Status post AVR)
Subjective:
No major events overnight
Currently pain is controlled
Denies shortness of breath at rest
Review of Systems
Cardiopulmonary: Dyspnea (n)
GI: Abdominal Pain (n)
Neuro: Headache (n)
Objective Data
Data Reviewed
Vital Signs / I&O / Oxygen:
Vital Signs
Temp Pulse Resp BP Pulse Ox
97.6 F 80 16 112/69 94
06/26/24 08:00 06/26/24 09:20 06/26/24 08:00 06/26/24 09:00 06/26/24 09:24
Intake and Output
06/25/24 06/26/24 06/27/24
06:59 06:59 06:59
Intake Total 2696.9 / 2696.9 250.6 / 250.6
Output Total 2565 / 2565 0 / 0
Balance 131.9 / 131.9 250.6 / 250.6
SaO2 [CPAP] 99
SaO2 [SIMV] 98
SaO2 94
Nasal Cannula flow liters per 2
minute
Physical Exam
General: Comfortable
HEENT: Normocephalic
Cardiovascular: S1-S2
Respiratory: Clear and Chest Tube (No airleak. No excessive drainage)
GI: Soft and Non Distended
Neurology: Awake, Alert and No Motor Deficits
Labs/Micro/Reports
Lab Data
06/26/24 02:45
06/26/24 02:45
Laboratory Results
06/25/24 06/25/24 06/26/24
10:39 15:47 02:44
PT 18.7 H 16.2 H
INR 1.58 1.32
APTT 33.5
pH 7.43 7.52 H
pCO2 38 32 L
pO2 184 H 191 H
HCO3 25.2 26.1
O2 Delivery Level vent
--- NOTE | 2024-06-26 10:43 | CM ---
Chart reviewed. Patient was OOB sitting in the chair. Patient is independent of ADLS, lives with his in a 2 STH, 0 HORACE, 0 DME. Plan is for the patient to return home with CT Transitional RN. CM to follow
--- NOTE | 2024-06-26 11:00 | PTCARENOTE ---
VSS, NSR on monitor. B/P: 127/77, HR: 83, resp: 18, POX 92% RA. Pt ambulated to bathroom. PM care provided to pt. Pt resting in bed. Will continue to assess pt needs.
[2024-06-26] MEDS: REFRESH EYE DROPS (PF) OPHTH ×2 (12:04→18:17)
--- NOTE | 2024-06-26 12:21 | PTCARENOTE ---
Sitting up in the chair. Roxicodone given for pain. VSS. No void since salguero removed this am, bladder scanned for 175 ml. Denies urge to void. CT PA made aware. Assessment otherwise unchanged from prior.
[2024-06-26] MEDS: FERRLECIT 110 MG IV (14:01)
[2024-06-26] MEDS: LASIX 20 MG IV (15:00)
--- NOTE | 2024-06-26 16:25 | PTCARENOTE ---
Able to void in urinal after IV lasix. Pain well managed. VSS. Assessment unchanged from prior.
--- NOTE | 2024-06-26 19:45 | PTCARENOTE ---
Addendum entered by Kat Fernandez RN 06/26/24 20:49:
slight crepitus noted on bilateral upper chest.
Original Note:
Received pt from [facility]. Pt assessment completed in chair. Pt is AAOx4, no neuro deficits noted. NSR on monitor HR:82, B/P:127/75, resp:18, POX 94% RA. AV temp pacer set to backup. 30-10-10- A 0.5 V 2.0, Pulses palpable, no edema noted. Lungs
clear, diminished in bases. I/S:1000, encouraged pt to use. C/T x2, dressing C/D/I, draining serosanguineous fluid WNL. pt voiding clear, yellow urine. NBS, abdomen soft, non-tender to touch. Sternal incision approx., sternal glue present. IJ cordis
intact, no redness or edema noted. R hand 18g PVA intact, no redness or edema noted.
Discussed plan of care with pt. Pt agrees with plan. Will continue to assess pt needs.
--- NOTE | 2024-06-26 19:45 | PTCARENOTE ---
Received pt from [facility]. Pt assessment completed in chair. Pt is AAOx4, no neuro deficits noted. NSR on monitor HR:82, B/P:127/75, resp:18, POX 94% RA. AV temp pacer set to backup. 30-10-10- A 0.5 V 2.0, Pulses palpable, no edema noted. Lungs
clear, diminished in bases. I/S:1000, encouraged pt to use. C/T x2, dressing C/D/I, draining serosanguineous fluid WNL. pt voiding clear, yellow urine. NBS, abdomen soft, non-tender to touch. Sternal incision approx., sternal glue present. IJ cordis
intact, no redness or edema noted. R hand 18g PVA intact, no redness or edema noted.
[2024-06-26] MEDS: TOPROL XL 12.5 MG PO (20:06)
[2024-06-27] VITALS (17 sets, daily range): BP systolic 101–136; BP diastolic 54–85; PULSE 81; O2SAT 96–97; BMI 25.1
--- NOTE | 2024-06-27 03:58 | PTCARENOTE ---
VSS. NSR on monitor. HR: 81, B/P: 109/74, Resp 16, POX93% RA. Morning labs obtained and sent. Pt resting in bed. Will continue to assess pt needs.
[2024-06-27 03:59] LABS: Hematocrit 29.8 % (39.0-52.0); Hemoglobin 10.3 g/dL (13.0-18.0); Mean Corp Hgb Conc. 34.6 g/dL (33.0-37.0); Mean Corpuscular Hgb 29.9 pg (27.0-31.0); Mean Corpuscular Volume 86.6 fL (80.0-94.0); Mean Platelet Volume 8.9 fL (7.4-10.4); Platelet Count 160 10^3/uL (130-400); Red Blood Cell Count 3.44 10^6/uL (4.70-6.10); Red Cell Dist. Width 14.2 % (11.5-14.5); White Blood Cell Count 17.8 10^3/uL (4.8-10.8)
[2024-06-27 04:25] LABS: Blood Urea Nitrogen 25 mg/dl (9-20); Calcium 8.6 mg/dl (8.4-10.2); Carbon Dioxide 29 mmol/L (22-30); Chloride 100 mmol/L (98-107); Estimated Creatinine Clearance 81 ml/min; Glucose 119 mg/dl (70-99); Magnesium 2.1 mg/dl (1.6-2.3); Potassium 4.5 mmol/L (3.5-5.1); Sodium 136 mmol/L (135-145); eGFR > 60.00
--- NOTE | 2024-06-27 06:00 | W.PN.CT ---
Today's Communication / Plan
-
-pod #2
-no issues overnight
-lightheadedness yesterday am - resolved.
-tolerated 20 iv Lasix on 06/26 (UO 600)
-CT output: 2 meds 60/130
-weaned off O2 - 93% on RA
-encourage IS, OOB, ambulate
Assessment / Plan
-
Assessment:
-S/P Sternotomy/Surgical aortic valve replacement [29 mm Medtronic Avalus]/Left atrial appendage exclusion [35 mm clip], by Dr. Reid, 06/25/24, pod#2
-Severe aortic valve insufficiency secondary to prolapse leaflet
-Dilated left ventricle reduced left ventricular ejection fraction, 45-50% per intraop FAIZAN
-Acute on chronic congestive systolic and diastolic heart failure with dilated LV and reduced cardiac index of 1.2 after induction of anesthesia
-Mild-moderate TR
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
-Diverticulosis
-Baseline hypotension intolerant of additional GDMT
-Gout
-Headaches
-S/p Biopsy of forehead lesion
-Acute postop blood loss/anemia
-Acute postop coagulopathy (transfused 1 {5 pk} plts, DDAVP, 2u FFPs)
-Intraop Cardiogenic shock (CI 1.2 after induction of anesthesia)
-Acute postop atelectasis
-Acute postop hypovolemia with subsequent hypervolemia
Discussed patient care with: Nursing and Care Team
Subjective
Procedure
S/P Sternotomy/Surgical aortic valve replacement [29 mm Medtronic Avalus]/Left atrial appendage exclusion [35 mm clip], by Dr. Reid, 06/25/24
-
Date of Service: June 27, 2024
Objective Data
-
Lab Results
06/27/24 03:50
06/27/24 03:50
PT 16.2 Sec (11.4-14.6) H 06/26/24 02:44
INR 1.32 06/26/24 02:44
APTT 33.5 Sec (23.4-35.0) 06/25/24 10:39
Vital Signs
Vital Signs
Temp Pulse Resp BP Pulse Ox
98.3 F 87 16 109/74 93
06/27/24 03:53 06/27/24 04:00 06/27/24 03:53 06/27/24 03:52 06/27/24 03:53
CT Intake/Output/Weight
06/26/24 06/26/24 06/27/24
06:59 18:59 06:59
Intake Total 436.6 / 2696.9 770.6 / 1060.6 290 / 1060.6
Output Total 895 / 2565 670 / 930 260 / 930
Balance -458.4 / 131.9 100.6 / 130.6 30 / 130.6
SaO2: 93
Physical Exam
-
General: Awake and AOx3
Cardiovascular: Regular rate & rhythm, No Murmurs and No Rub
Respiratory: Decreased Breath Sounds
Sternum: Stable
Incision: Clean, Dry and Intact
Extremities: No Edema
Abdomen: soft, nontender, bowel sounds, flatus+
Data Reviewed
-
Lab Results: Results Reviewed
Medications: Active Meds Reviewed
Chest X-Ray: Report Reviewed and Image Reviewed
ECG: Report Reviewed and Image Reviewed
[2024-06-27] MEDS: TYLENOL 1000 MG PO ×3 (06:14→21:26)
--- NOTE | 2024-06-27 07:30 | W.PN.CD ---
Today's Communication / Plan
-
Continue postop care and removal of chest tube as per CT surgery
Impression / Plan
-
BACKGROUND: 73M with severe aortic regurgitation and dilated aortic root with recent TTE that demonstrated progressive dilation of his LV with mildly reduced systolic function 45%, who presented for AVR.
Primary Industrial Service Technician: Dr. Leal
IMPRESSION/PLAN:
S/P surgical aortic valve replacement [29 mm Medtronic Avalus] with STEPHANY clip ( surgery for Severe AI and aortic root dilation )
-Pre LVEF 45% & post LVEF 45% without RWMA
-No blood products (469 mL cell saver)
-EKG with sinus rhythm
-Postop care and removal of chest tube as per CT surgery
NICM
-TTE 64% 05/22/2024, pre SAVR 45%
-Limited echocardiogram prior to discharge
-GDMT after recovery
Non-obstructive CAD, LAD moderately calcified with 30-40% stenosis distal to the takeoff of a large D1, D1 with 50% ostial stenosis
Dyslipidemia
- on atorvastatin
SUBJECTIVE:
Some postop discomfort. Chest tube still in place. No palpitations no shortness of breath
Physical Exam
Vital Signs/Labs
Vital Signs
Temp Pulse Resp BP Pulse Ox
98.3 F 87 16 109/74 93
06/27/24 03:53 06/27/24 04:00 06/27/24 03:53 06/27/24 03:52 06/27/24 06:04
06/26/24 06/27/24 06/28/24
06:59 06:59 06:59
Actual Weight 76 kg 76.9 kg
06/27/24 03:50
06/27/24 03:50
PT 16.2 Sec (11.4-14.6) H 06/26/24 02:44
INR 1.32 06/26/24 02:44
APTT 33.5 Sec (23.4-35.0) 06/25/24 10:39
Magnesium 2.1 mg/dl (1.6-2.3) 06/27/24 03:50
Physical Exam
Constitutional: No acute distress
Cardiovascular: Rhythm & rate is regular
Respiratory: Wheeze Absent, Rhonchi Absent and Other (Chest tube remains intact)
GI: Soft and Non tender
Neuro/Psych: Alert
Data Reviewed
-
Date of Service: June 27, 2024
Medical Decision Making: Reviewed Test Results
Labs: Labs Reviewed by me
[2024-06-27] MEDS: MAGNESIUM OXIDE 500 MG PO ×2 (08:36→20:03)
[2024-06-27] MEDS: TOPROL XL 12.5 MG PO ×2 (08:36→20:03)
[2024-06-27] MEDS: PACERONE 200 MG PO ×3 (08:36→21:27)
[2024-06-27] MEDS: LASIX 20 MG IV (08:36)
[2024-06-27] MEDS: SENOKOT-S 1 TABLET PO ×2 (08:36→20:03)
[2024-06-27] MEDS: NEURONTIN 100 MG PO ×3 (08:36→21:26)
[2024-06-27] MEDS: PROTONIX 40 MG PO (08:36)
[2024-06-27] MEDS: LIPITOR 40 MG PO (08:36)
[2024-06-27] MEDS: LOW STRENGTH ASPIRIN 81 MG PO (08:37)
[2024-06-27] MEDS: REFRESH EYE DROPS (PF) OPHTH ×4 (08:37→21:27)
[2024-06-27] MEDS: BACTROBAN 2% OINTMENT 1 APPLIC NASAL ×2 (08:40→20:04)
[2024-06-27] MEDS: LIDOCAINE 4% PATCH 1 PATCH TOPICAL (08:40)
--- NOTE | 2024-06-27 08:45 | PTCARENOTE ---
Assumed care of patient at 0700. Pt is awake, alert, and oriented. No complaints of pain at this time. Pt remains SR with HR 70's. BP 111/65 MAP 79. AV wires in place. Pulse oximetry 95% on room air. Mediastinal chest tubes in place, no sign of air
leak, minimal crepitus noted in upper chest. Pt tolerating PO diet. Voiding without issue. Midsternal incision approximated and PEPE. Right IJ cordis in place with KVO. Pt currently OOB in chair with call ge within reach.
[2024-06-27] MEDS: NSS IV (11:11)
--- NOTE | 2024-06-27 11:20 | PTCARENOTE ---
AV wires pulled by CT Bakari BECKETT. Pt tolerated well. Mediastinal chest tubes d/c'd 1 hr s/p AV wire removal. Ambulated in [place] with cardiac rehab. Pt continues to utilize IS.
--- NOTE | 2024-06-27 11:24 | CM ---
Chart reviewed. Patient is independent of ADLS, lives with his in a 2 STH, 0 HORACE, 0 DME. Plan is for the patient to return home with CT Transitional RN. CM to follow
[2024-06-27] MEDS: FERRLECIT 110 MG IV (15:01)
--- NOTE | 2024-06-27 15:21 | PTCARENOTE ---
Pt ambulated with RN in hallway without issue. Pt with no changes in assessment. Pt remains SR with HR 80's-90's. BP 119/75 MAP 87.
[2024-06-27] MEDS: REFRESH EYE DROPS (PF) 1 DROPS OPHTH (18:25)
--- NOTE | 2024-06-27 20:00 | PTCARENOTE ---
Received pt from [facility]. pt resting comfortably in bed. pt is AAOx4, states pain is 2/10. NSR on monitor. VSS. heart sounds audible, rub present, radial and DP pulses palpable, no edema noted. lung sounds diminished throughout, spo2 94% on RA.
hypoactive bs x4 quadrants,abdomen soft, no tender. pt voiding clear yellow urine. surgical sites maintained. PIV maintained. call ge within reach. will continue to monitor.
[2024-06-27] MEDS: ROXICODONE 5 MG PO (21:26)
[2024-06-27] MEDS: CORDARONE 103 MG IV (23:57)
[2024-06-27] MEDS: LOPRESSOR 2.5 MG IV (23:57)
[2024-06-28] VITALS (17 sets, daily range): BP systolic 94–127; BP diastolic 58–87; PULSE 82; O2SAT 97; BMI 24.7
--- NOTE | 2024-06-28 | PTCARENOTE ---
Pt resting comfortably in bed. pt went into Afib at 2342. IV lopressor given. amiodarone bolus and gtt started. pt's bp stable. pt education on Afib provided. call ge within reach. will continue to monitor.
[2024-06-28] MEDS: CORDARONE 518 MG IV (00:20)
[2024-06-28] MEDS: TOPROL XL 12.5 MG PO ×2 (03:58→12:19)
--- NOTE | 2024-06-28 04:00 | PTCARENOTE ---
Pt remains in Afib. amio gtt infusing. per CVPA, 0800 dose of lopressor is given early for increased HR. call ge within reach. will continue to monitor.
[2024-06-28 04:28] LABS: Hematocrit 27.9 % (39.0-52.0); Hemoglobin 9.7 g/dL (13.0-18.0); Mean Corp Hgb Conc. 34.8 g/dL (33.0-37.0); Mean Corpuscular Volume 83.3 fL (80.0-94.0); Mean Platelet Volume 8.9 fL (7.4-10.4); Platelet Count 148 10^3/uL (130-400); Red Blood Cell Count 3.35 10^6/uL (4.70-6.10); Red Cell Dist. Width 14.3 % (11.5-14.5); White Blood Cell Count 11.1 10^3/uL (4.8-10.8)
[2024-06-28 04:38] LABS: Blood Urea Nitrogen 21 mg/dl (9-20); Calcium 8.5 mg/dl (8.4-10.2); Carbon Dioxide 30 mmol/L (22-30); Chloride 99 mmol/L (98-107); Estimated Creatinine Clearance 81 ml/min; Glucose 102 mg/dl (70-99); Magnesium 2.1 mg/dl (1.6-2.3); Potassium 3.9 mmol/L (3.5-5.1); Sodium 137 mmol/L (135-145); eGFR > 60.00
--- NOTE | 2024-06-28 05:06 | W.PN.CT ---
Today's Communication / Plan
-
-pod #3
-looks and feels well overall, no complaints
-went into rapid a-fib 130s-140s at 11:40 pm (asymptomatic) - got iv Lopressor, Amio bolus and drip - got another Amio bolus this am - converted to nsr @ 6:40 am. Gave Toprol at 4 am
-current meds (ASA, Toprol, Amio, Lipitor, Protonix)
-encourage IS, OOB
Assessment / Plan
-
Assessment:
-S/P Sternotomy/Surgical aortic valve replacement [29 mm Medtronic Avalus]/Left atrial appendage exclusion [35 mm clip], by Dr. Reid, 06/25/24, pod#3
-Severe aortic valve insufficiency secondary to prolapse leaflet
-Dilated left ventricle reduced left ventricular ejection fraction, 45-50% per intraop FAIZAN
-Acute on chronic congestive systolic and diastolic heart failure with dilated LV and reduced cardiac index of 1.2 after induction of anesthesia
-Mild-moderate TR
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
-Diverticulosis
-Baseline hypotension intolerant of additional GDMT
-Gout
-Headaches
-S/p Biopsy of forehead lesion
-Acute postop blood loss/anemia
-Acute postop coagulopathy (transfused 1 {5 pk} plts, DDAVP, 2u FFPs)
-Intraop Cardiogenic shock (CI 1.2 after induction of anesthesia)
-Acute postop atelectasis
-Acute postop hypovolemia with subsequent hypervolemia
-Acute postop a-fib with RVR on 06/27- tx with iv Lopressor, Amio bolus and drip
Discussed patient care with: Nursing and Care Team
Subjective
Procedure
S/P Sternotomy/Surgical aortic valve replacement [29 mm Medtronic Avalus]/Left atrial appendage exclusion [35 mm clip], by Dr. Reid, 06/25/24
-
Date of Service: June 28, 2024
Objective Data
-
Lab Results
06/28/24 04:00
06/28/24 04:00
PT 16.2 Sec (11.4-14.6) H 06/26/24 02:44
INR 1.32 06/26/24 02:44
APTT 33.5 Sec (23.4-35.0) 06/25/24 10:39
Vital Signs
Vital Signs
Temp Pulse Resp BP Pulse Ox
98.3 F 117 16 99/73 94
06/28/24 04:00 06/28/24 05:00 06/27/24 15:19 06/28/24 05:00 06/28/24 04:00
CT Intake/Output/Weight
06/27/24 06/27/24 06/28/24
06:59 18:59 06:59
Intake Total 330 / 1100.6 120 / 120
Output Total 490 / 1160 1305 / 1780 475 / 1780
Balance -160 / -59.4 -1185 / -1660 -475 / -1660
SaO2: 94
Physical Exam
-
General: AOx3
Cardiovascular: Irregular rate & rhythm, No Murmurs and No Rub
Respiratory: Decreased Breath Sounds
Sternum: Stable
Incision: Clean, Dry and Intact
Extremities: No Edema
Data Reviewed
-
Lab Results: Results Reviewed
Medications: Active Meds Reviewed
Chest X-Ray: Report Reviewed and Image Reviewed
ECG: Report Reviewed and Image Reviewed
[2024-06-28] MEDS: KCL 20 MEQ PO ×2 (05:23→09:22)
[2024-06-28] MEDS: TYLENOL 1000 MG PO ×3 (05:25→21:30)
--- NOTE | 2024-06-28 05:30 | PTCARENOTE ---
Pt's am potassium lab value was 3.9. repleted with 20meq of K+ instead of 40meq, per CVPA.
[2024-06-28] MEDS: CORDARONE 103 MG IV (06:34)
[2024-06-28] MEDS: LIDOCAINE 4% PATCH 1 PATCH TOPICAL (08:04)
[2024-06-28] MEDS: NEURONTIN 100 MG PO ×3 (08:05→21:29)
[2024-06-28] MEDS: LOW STRENGTH ASPIRIN 81 MG PO (08:05)
[2024-06-28] MEDS: MAGNESIUM OXIDE 500 MG PO ×2 (08:05→21:28)
[2024-06-28] MEDS: SENOKOT-S 1 TABLET PO ×2 (08:05→21:28)
[2024-06-28] MEDS: BACTROBAN 2% OINTMENT 1 APPLIC NASAL ×2 (08:05→21:27)
[2024-06-28] MEDS: LIPITOR 40 MG PO (08:05)
[2024-06-28] MEDS: PROTONIX 40 MG PO (08:05)
[2024-06-28] MEDS: REFRESH EYE DROPS (PF) OPHTH ×2 (08:05→12:36)
[2024-06-28] MEDS: PACERONE 200 MG PO ×3 (08:05→21:29)
[2024-06-28] MEDS: NSS 500 IV (08:06)
--- NOTE | 2024-06-28 08:10 | W.PN.CD ---
Today's Communication / Plan
-
Back in sinus rhythm after about 7 hours of A-fib
Continue with IV amiodarone
Consider anticoagulation when safe from a postop standpoint
Impression / Plan
-
BACKGROUND: 73M with severe aortic regurgitation and dilated aortic root with recent TTE that demonstrated progressive dilation of his LV with mildly reduced systolic function 45%, who presented for AVR.
Primary Medicare Sales Executive: Dr. Leal
IMPRESSION/PLAN:
S/P surgical aortic valve replacement [29 mm Medtronic Avalus] with STEPHANY clip ( surgery for Severe AI and aortic root dilation )
-Pre LVEF 45% & post LVEF 45% without RWMA
-No blood products (469 mL cell saver)
-EKG with sinus rhythm
-Postop care and removal of chest tube as per CT surgery
Post op - afib
- in napper runner 06/27/24 -06/28/24. Duration approximately 7 hours
-Now on IV amiodarone and back in sinus rhythm
- continue amio and BB
-Consider anticoagulation when safe from a postoperative standpoint
NICM
-TTE 64% 05/22/2024, pre SAVR 45%
-Limited echocardiogram prior to discharge
-GDMT after recovery
Non-obstructive CAD, LAD moderately calcified with 30-40% stenosis distal to the takeoff of a large D1, D1 with 50% ostial stenosis
Dyslipidemia
- on atorvastatin
SUBJECTIVE:
Some postop discomfort. Chest tube still in place. No palpitations no shortness of breath
Physical Exam
Vital Signs/Labs
Vital Signs
Temp Pulse Resp BP Pulse Ox
97.9 F 70 18 94/65 95
06/28/24 08:03 06/28/24 08:03 06/28/24 08:03 06/28/24 08:00 06/28/24 08:03
06/27/24 06/28/24 06/29/24
06:59 06:59 06:59
Actual Weight 76.9 kg 75.9 kg
06/28/24 04:00
06/28/24 04:00
PT 16.2 Sec (11.4-14.6) H 06/26/24 02:44
INR 1.32 06/26/24 02:44
APTT 33.5 Sec (23.4-35.0) 06/25/24 10:39
Magnesium 2.1 mg/dl (1.6-2.3) 06/28/24 04:00
Physical Exam
Constitutional: No acute distress
Cardiovascular: Rhythm & rate is regular
Respiratory: Wheeze Absent and Rhonchi Absent
GI: Soft
Neuro/Psych: Alert
Data Reviewed
-
Date of Service: June 28, 2024
Medical Decision Making: Reviewed Test Results
EKG: Report Reviewed by me
Medical Tests (PFT, Pathology etc): Report Reviewed by me
Labs: Labs Reviewed by me
[2024-06-28] MEDS: DULCOLAX 10 MG PO (08:16)
--- NOTE | 2024-06-28 08:45 | PTCARENOTE ---
Assumed care of patient at 0700. Pt is awake, alert, and oriented. No complaints of pain at this time. Pt remains SR with HR 70's. BP 94/65 MAP 75. Pulse oximetry 95% on room air. Pt achieving 1500 with IS, continued use encouraged. Pt tolerating PO
diet. Active bowel sounds, abdomen soft nontender. Voiding without issue. Midsternal incision approximated and HOSPITALITY DIRECTOR. Right IJ cordis in place with KVO and Amiodarone gtt at 0.5mg/min. Pt ambulated with RN in hallway tolerated well. Remains OOB in
chair with call ge within reach.
[2024-06-28] MEDS: LASIX 20 MG IV (09:22)
--- NOTE | 2024-06-28 11:00 | PTCARENOTE ---
Pt walked with cardiac rehab. Steps completed. Tolerated well.
--- NOTE | 2024-06-28 12:47 | PTCARENOTE ---
Pt ambulated with RN with no issues. Pt remains SR with HR 70's. BP 104/70 MAP 80. Pulse oximetry 97% on room air.
[2024-06-28] MEDS: FERRLECIT 110 MG IV (14:09)
--- NOTE | 2024-06-28 16:00 | PTCARENOTE ---
Pt ambulating in hallway with RN assistance. Pt remains in SR with HR 60's-70's.
[2024-06-28] MEDS: REFRESH EYE DROPS (PF) 1 DROPS OPHTH ×2 (18:58→21:29)
--- NOTE | 2024-06-28 21:05 | PTCARENOTE ---
Report received from LAVON Jiménez. Walking rounds done. Pt awake, alert, oriented x 4. Sitting up in chair. On room air. Sats 95-97%. BBS present. Mildly decreased to B bases. CDB, and IS encouraged. IS Peak 1500 mls. Pt remains in SR. Amiodarone gtt
infusing at 0.5 mg/min. Normotensive. For pulse and wound assessments, see flowsheets. Belly soft, round nontender. Normoactive bs x 4. Pt voids clear, yellow urine. Helped back to bed. Sats in bed 97% on room air. Pt given CHG bath, face washed. He
performed mouth care himself. Ongoing plan of care.
[2024-06-28] MEDS: TOPROL XL 25 MG PO (21:28)
[2024-06-28] MEDS: MELATONIN 5 MG PO (21:29)
[2024-06-29] VITALS (7 sets, daily range): BP systolic 95–130; BP diastolic 64–88; PULSE 67; O2SAT 98; BMI 24.5
--- NOTE | 2024-06-29 00:25 | PTCARENOTE ---
Amiodarone gtt turned off per order. Pt remains in SR. Pt sleeping.
--- NOTE | 2024-06-29 03:33 | W.PN.CT ---
Today's Communication / Plan
-
-pod #4
-doing well, ambulating without difficulty
-Amio drip was off at midnight. Remains in nsr
-weaned off O2 - pOx 95 on RA
-diuresed with 20 iv Lasix on 06/28 (UO 1400/3600 in 12/24 hrs)
-possible d/c home
Assessment / Plan
-
Assessment:
-S/P Sternotomy/Surgical aortic valve replacement [29 mm Medtronic Avalus]/Left atrial appendage exclusion [35 mm clip], by Dr. Reid, 06/25/24, pod#4
-Severe aortic valve insufficiency secondary to prolapse leaflet
-Dilated left ventricle reduced left ventricular ejection fraction, 45-50% per intraop FAIZAN
-Acute on chronic congestive systolic and diastolic heart failure with dilated LV and reduced cardiac index of 1.2 after induction of anesthesia
-Mild-moderate TR
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
-Diverticulosis
-Baseline hypotension intolerant of additional GDMT
-Gout
-Headaches
-S/p Biopsy of forehead lesion
-Acute postop blood loss/anemia
-Acute postop coagulopathy (transfused 1 {5 pk} plts, DDAVP, 2u FFPs)
-Intraop Cardiogenic shock (CI 1.2 after induction of anesthesia)
-Acute postop atelectasis
-Acute postop hypovolemia with subsequent hypervolemia
-Acute postop a-fib with RVR on 06/27- tx with iv Lopressor, Amio bolusx2 and drip
Discussed patient care with: Nursing and Care Team
Subjective
Procedure
S/P Sternotomy/Surgical aortic valve replacement [29 mm Medtronic Avalus]/Left atrial appendage exclusion [35 mm clip], by Dr. Reid, 06/25/24
-
Date of Service: June 29, 2024
Objective Data
-
PT 16.2 Sec (11.4-14.6) H 06/26/24 02:44
INR 1.32 06/26/24 02:44
APTT 33.5 Sec (23.4-35.0) 06/25/24 10:39
Vital Signs
Vital Signs
Temp Pulse Resp BP Pulse Ox
98.5 F 66 16 121/74 95
06/28/24 22:18 06/28/24 22:18 06/28/24 22:18 06/28/24 22:18 06/29/24 00:58
CT Intake/Output/Weight
06/28/24 06/28/24 06/29/24
06:59 18:59 06:59
Intake Total 337.0 / 497.2 160.2 / 497.2
Output Total 475 / 2180 2200 / 3600 1400 / 3600
Balance -475 / -2016.7 -1863.0 / -3102.8 -1239.8 / -3102.8
SaO2: 95
Physical Exam
-
General: Awake and AOx3
Cardiovascular: Regular rate & rhythm, No Murmurs and No Rub
Respiratory: Decreased Breath Sounds
Incision: Clean, Dry and Intact
Extremities: No Edema
Abdomen: soft, nontender, nondistended, + bowel sounds
Data Reviewed
-
Lab Results: Results Reviewed
Medications: Active Meds Reviewed
Chest X-Ray: Report Reviewed and Image Reviewed
ECG: Report Reviewed and Image Reviewed
--- NOTE | 2024-06-29 04:20 | PTCARENOTE ---
VS done. To draw labs and send.
[2024-06-29 05:14] LABS: Hematocrit 27.4 % (39.0-52.0); Hemoglobin 9.3 g/dL (13.0-18.0); Mean Corp Hgb Conc. 33.9 g/dL (33.0-37.0); Mean Corpuscular Volume 85.4 fL (80.0-94.0); Platelet Count 167 10^3/uL (130-400); Red Blood Cell Count 3.21 10^6/uL (4.70-6.10); Red Cell Dist. Width 13.9 % (11.5-14.5); White Blood Cell Count 7.6 10^3/uL (4.8-10.8)
[2024-06-29 05:50] LABS: Blood Urea Nitrogen 17 mg/dl (9-20); Calcium 8.6 mg/dl (8.4-10.2); Carbon Dioxide 29 mmol/L (22-30); Chloride 102 mmol/L (98-107); Estimated Creatinine Clearance 93 ml/min; Glucose 98 mg/dl (70-99); Magnesium 2.2 mg/dl (1.6-2.3); Potassium 4.1 mmol/L (3.5-5.1); Sodium 137 mmol/L (135-145); eGFR > 60.00
[2024-06-29] MEDS: TYLENOL 1000 MG PO (05:57)
--- NOTE | 2024-06-29 05:59 | PTCARENOTE ---
Pt assisted up to standing scale, then recliner chair. Remains in SR, rate 80's.
[2024-06-29] MEDS: MAGNESIUM OXIDE 500 MG PO (07:59)
[2024-06-29] MEDS: LIPITOR 40 MG PO (07:59)
[2024-06-29] MEDS: PROTONIX 40 MG PO (07:59)
[2024-06-29] MEDS: KCL 20 MEQ PO (08:00)
[2024-06-29] MEDS: SENOKOT-S 1 TABLET PO (08:00)
[2024-06-29] MEDS: TOPROL XL 25 MG PO (08:00)
[2024-06-29] MEDS: NEURONTIN 100 MG PO (08:00)
[2024-06-29] MEDS: LOW STRENGTH ASPIRIN 81 MG PO (08:00)
[2024-06-29] MEDS: PACERONE 200 MG PO (08:00)
[2024-06-29] MEDS: BACTROBAN 2% OINTMENT 1 APPLIC NASAL (08:01)
[2024-06-29] MEDS: LIDOCAINE 4% PATCH 1 PATCH TOPICAL (08:01)
[2024-06-29] MEDS: REFRESH EYE DROPS (PF) OPHTH (08:02)
[2024-06-29] MEDS: LASIX 20 MG IV (08:02)
--- NOTE | 2024-06-29 08:06 | W.PN.CD ---
Today's Communication / Plan
-
Consider DOAC (possibly a limited course) for paroxysmal post operative atrial fibrillation.
Encourage incentive spirometry, ambulation.
Furosemide PRN weight gain.
Discharge planning.
Impression / Plan
-
Impression/Plan: 73M with severe aortic regurgitation and dilated aortic root with recent TTE that demonstrated progressive dilation of his LV with mildly reduced systolic function 45%, admitted for elective SAVR.
#Severe aortic valve insufficiency
-Chronic, progressive.
-S/P surgical aortic valve replacement (#29 mm Medtronic Avalus AVR, serial #[id number]) with Dr. Reid, 06/25/2024.
-Routine post operative management.
-Encouage ambulation, incentive spirometry.
-Furosemide as needed for weight gain.
#Paroxysmal atrial fibrillation
-New diagnosis - post op AF.
-Seven hour duration from 06/27/24 -06/28/24.
-Converted with IV amiodarone, now off.
-Rate/rhythm control with metoprolol succinate.
-CHADS2-Vasc = 3 (CHF, Age x1, Vascular disease - non-obstructive CAD).
-S/P LAAO (#35 AtriClip, serial #[id number]).
-Consider DOAC (perhaps a limited course) at the time of discharge.
#NICMO
-Relatively new diagnosis.
-TTE 64% 05/22/2024, pre SAVR 45%.
-Hemodynamics limit GDMT.
-Continue metoprolol succinate 25 mg BID.
-Adjust furosemide dose as needed.
-Limited TTE prior to discharge.
#Non-obstructive CAD
-Chronic, stable.
-LAD moderately calcified with 30-40% stenosis distal to the takeoff of a large D1, D1 with 50% ostial stenosis.
-Aggressive primary prevention. Continue aspirin, atorvastatin.
#Dyslipidemia
-Chronic, stable.
-Continue atorvastatin.
Primary Homeworker: Dr. Leal
Subjective/Interval History:
No acute events.
AF converted to NSR.
Amiodarone gtt off at [place].
Weight is down, but remains 0.8 kg above admission weight.
Metoprolol succinate increased to 25 mg BID yesterday.
DATA:
Intraprocedural FAIZAN, 06/25/2024:
CONCLUSIONS
Mild global hypokinesis. Overall LVEF is approximately 50%.
Left ventricle is mildly dilated.
Moderate concentric left ventricular hypertrophy.
Moderately dilated left atrium.
Trace mitral regurgitation.
Mild to moderate tricuspid regurgitation.
Mild pulmonic insufficiency.
Severe aortic insufficiency.
Sinus of Valsalva is dilated measuring 4.6 cm.
Mid ascending aorta is mildly dilated measuring 3.6 cm at the level of the RPA.
POST OPERATIVE FINDINGS
The patient underwent an AVR with a size 29 bioprosthetic valve and clipping of
the LA appendage. Postop rhythm remains sinus. RV function appears normal.
Overall LVEF is still approximately 45-50% with no new RWMA. The AVR is well
seated with normal cusp motion. No AI or perivalvular leaks. Max AV gradient
is now 11 mmHg, mean is 6 mmHg. Cardiac index at this time is 2.0. Trace to
mild TR. PV and MV function appear normal. The LA appendage has been well
clipped with only minimal residual lumen noted by 2D echo and color Doppler.
Aortic scan is unchanged.
Physical Exam
Vital Signs/Labs
Vital Signs
Temp Pulse Resp BP Pulse Ox
36.7 C 59 16 95/64 95
06/29/24 07:47 06/29/24 07:47 06/29/24 07:47 06/29/24 07:47 06/29/24 07:47
06/27/24 06/28/24 06/29/24
11:59 11:59 11:59
Actual Weight 76.9 kg 75.9 kg 75.3 kg
06/29/24 05:05
06/29/24 05:05
PT 16.2 Sec (11.4-14.6) H 06/26/24 02:44
INR 1.32 06/26/24 02:44
APTT 33.5 Sec (23.4-35.0) 06/25/24 10:39
Magnesium 2.2 mg/dl (1.6-2.3) 06/29/24 05:05
Physical Exam
Constitutional: No acute distress and Comfortable
EENT: Anicteric and Moist mucous membranes
Cardiovascular: Rhythm & rate is regular, Pedal edema is absent, JVD pressure is normal, S1S2 is normal and Murmur/rub/gallop absent
Respiratory: Respiratory effort normal, Lungs clear to auscul., Wheeze Absent, Crackles Absent and Rhonchi Absent
GI: Soft, Distention absent, Flat, Non tender and Normal bowel sounds
Neuro/Psych: AO x 3
Data Reviewed
-
Date of Service: June 29, 2024
Medical Decision Making: Reviewed Test Results, Independent Historian Assessment and Test Interpretation
EKG: Tracing Personally Visualized and interpreted and Report Reviewed by me
Echo: Report Reviewed by me
X-Ray/CT/US/MRI/NUC/PET: Image Personally Visualized and interpreted and Report Reviewed by me
Medical Tests (PFT, Pathology etc): Report Reviewed by me
Labs: Labs Reviewed by me
Old Records: Reviewed
--- NOTE | 2024-06-29 08:41 | W.DCSUMMARY ---
Discharge Summary
Discharge Data
Date of Admission: 06/25/24
Date of Discharge: 06/29/24
Total time spent discharging patient (in min): 45
-
Pending Results: No
Hospital Course
Primary care physician:
Dr. Christopher Lyle
Outpatient dining room attendant cafeteria:
Dr. Leal
Inpatient consultants:
CBC
Procedures:
1. Surgical aortic valve replacement [29 mm Medtronic Avalus] and Left atrial appendage exclusion [35 mm clip]
Primary Diagnosis:
1. Aortic valve insufficiency, severe, with left ventricular dilation
Secondary Diagnoses:
1. Severe aortic valve insufficiency secondary to prolapse leaflet
2. Dilated left ventricle reduced left ventricular ejection fraction
3. Acute on chronic congestive systolic and diastolic heart failure with dilated LV and reduced cardiac index of 1.2 after induction of anesthesia
4. Diverticulosis
5. Baseline hypotension intolerant of additional GDMT
6. Gout
7. Mild dilation of aortic root
HPI: 73-year-old male with severe aortic valve insufficiency being followed by my office and cardiology. He was initially booked for December 2023 however given that his LV dimensions were preserved and LV function was preserved, multidisciplinary team
discussion was to hold off for now. He recently had worsening LV dimensions on TTE, therefore, he presented on 06/25 for a AVR with Dr. Reid.
Hospital course:
Patient presented to [facility] on 06/[facility] for a AVR with Dr. Reid. Postoperatively he returned to the CVICU on Levophed, Precedex, and insulin infusions. He did have some significant bleeding from his mediastinal chest tubes therefore he
was treated with protamine x 2, DDAVP, platelets, and 2 FFP. Once patient was stabilized from bleeding he was hemodynamically stable Precedex was weaned off and patient was extubated by 1630. He was then given some lactated Ringer's for a low CVP.
On 06/26 postoperative day 1 patient's Ho and [place] catheter was removed. Morning beta-daina was held due to lightheadedness and he was given his evening dose along with 20 mg of IV Lasix. On 06/27 postoperative day #2 patient wires and
chest tubes were discontinued. He was on room air and ambulating without issues. On 06/28 postoperative day 3 overnight patient converted into atrial fibrillation with a rapid ventricular response. He was treated with Amio boluses x 2 along with
an amio infusion per protocol. He converted after the boluses. And was kept an additional day to monitor heart rhythm. On 06/29 postoperative day 4 patient continued to be in sinus rhythm without issue. Repeat TTE was preformed. He was diuresed
with 20 mg of IV Lasix due to some trace pleural effusions seen on x-ray and deemed stable for discharge home with p.o. amio and lasix.
Home medication changes:
see below
Discharge Plan
-
Patient Disposition: Home (Routine Discharge)
Discharge Diagnosis/Procedures: surgical aortic valve replacement [29 mm Medtronic Avalus] with STEPHANY clip
Condition: Good
Diet: Low Cholesterol and 2 Gram Sodium
Activity: No strenuous activity
Driving Restrictions: Not until seen by your Dr
Bathing Restrictions: OK to Shower
Other Services: Cardiac Rehab
Specialty Instructions: Weigh Daily- Call MD for wt gain/loss 3 lbs overnight/5 lbs in 1 week
Activity Restrictions/Additional Instructions:
ACTIVITY:
-No strenuous activity: no heavy lifting, pushing, pulling anything over 15 pounds for one month
-continue to use stairs as tolerated
DRIVING RESTRICTIONS:
-No driving for one month or until approved by your surgeon
WOUND CARE:
-Shower daily. Use soap & water.
-No lotions, creams or powders on incision area.
DIET:
-continue a low fat/low cholesterol diet.
-IF you are diabetic, continue carb controlled diet.
CARDIAC REHAB:
-Please make appointment to start in 5-6 weeks with your local hospital program. (See Cardiac Rehabilitation Discharge Booklet).
SPECIALTY INSTRUCTIONS:
-Weigh yourself daily. Call your physician for any weight gain/loss of 3 lbs overnight or 5 lbs in one week.
-REPORT any clicking noise or uneven appearance of your sternum to your surgeon immediately.
-If you smoke, you are instructed to quit. The [place] smoking hotline phone number is [phone]
Referrals:
CT Transitional Care Nurse [Outside] (The Cardiothoracic Transitional Care Nurse will call you to set up a visit in 1-2 days.)
Cassie Epperson CRNP [Specified Professional Personl] - 08/06/24 10:00 am
Segundo Lyle DO [Family Provider] -
Albaro Reid MD [Active] - 07/26/24 1:45 pm
Prescriptions:
New
amiodarone 200 mg Tablet
200 mg PO BID Qty: 90 0RF
Rx Instructions:
Please take 200mg Twice a day for 2 weeks and then 200mg once a day until seen by cardiology
acetaminophen 325 mg Tablet
650 mg PO Q4HPRN PRN (Reason: mild pain,headache,temp >101F ) Qty: 0 0RF
gabapentin 100 mg Capsule
100 mg PO TID Qty: 60 0RF
metoprolol succinate 25 mg Tablet Extended Release 24 Hr
25 mg PO BID Qty: 60 0RF
Continued
Centrum Silver Men [phone] mcg Tablet
1 tab PO QPM
Glucosamine Chondroitin
1 tab PO DAILY
atorvastatin 40 mg tablet
40 mg PO DAILY Qty: 90 3RF
psyllium Powder
2 tsp PO .MID AFTERNOON
Systane Complete 0.6 % Drops
1 drp OPHTHALMIC (EYE) QID
Avenova 0.01 % [place],Non-Aerosol
1 spray TOPICAL DAILY
aspirin 81 mg tablet,delayed release (DR/EC)
81 mg PO DAILY
Discharge Orders:
Discharge Patient (As Directed); Ordered 06/29/24
Ordered By: Odalis Pan
Care Plan Goals
Care Plan Goals:
Problem: Readiness for enhanced knowledge related to diagnosis and treatment plan
Goal: Understand your diagnosis and treatment plan needs, including medications if applicable.
Instructions: Know your diagnosis, underlying causes and treatment plan options, including medications if applicable. Consult with your health care team to learn about your diagnosis and treatment plan, including medications if applicable.
Discharge Date and Time
Print Language: KINYARWANDA
--- NOTE | 2024-06-29 08:45 | PTCARENOTE ---
Received patient from fast food shift lead RN; AAOx3, responds spontaneously to RN and follows commands; VSS; SR with BBC and prolonged QT on monitor; Lungs diminished at bases; SpO2 97% on RA; IS 1500 ml; Normoactive BS - patient had BM this AM; Urinating
clear, yellow urine; Surgical sites intact; RIJ Cordis and PIVx1 #18 right hand present; IV Lasix 20 mg given; 2 view CXR completed; See nursing documentation for further details.
[2024-06-29] MEDS: NSS IV (09:30)
--- NOTE | 2024-06-29 10:15 | CARDSERVLU ---
Echocardiogram with Lumason completed after protocol screening completed. Allergies verified.
Patent IV site: __rt hand___
IV site flushed with 0.9% NaCl pre and post administration.
Diluted bolus method utilized to enhance visualization of ventricular arthur.
Total volume given: 3.0___ mL
Patient tolerated all procedures well without complications.
--- NOTE | 2024-06-29 12:59 | PTCARENOTE ---
Patient states full understanding of discharge instructions and has no further questions at this time. IV and telemetry pack removed. IV and RIJ Cordis removed. Patient belongings taken with patient and spouse. Showered with CHG prior to discharge.
Patient taken by wheelchair down to spouse's car.
== END 2024-06-29 13:08 | disposition home or self-care (01) | DRG 219 ==
LOC: CVICU 04:56
PROVIDERS: Anesthesiology; Clinical Nurse Specialist Acute Care; ADMITTING PHYSICIAN Thoracic Surgery (Cardiothoracic Vascular Surgery); CONSULT PHYSICIAN Internal Medicine Critical Care Medicine; FAMILY PHYSICIAN Family Medicine
PROC: 02RF08Z Replacement of Aortic Valve with Zooplastic Tissue, Open Approach (ICD-10-PCS; 2024-06-25)
PROC: B24BZZ4 Ultrasonography of Heart with Aorta, Transesophageal (ICD-10-PCS; 2024-06-25)
PROC: 02L70CK Occlusion of Left Atrial Appendage with Extraluminal Device, Open Approach (ICD-10-PCS; 2024-06-25)
PROC: 30233K1 Transfusion of Nonautologous Frozen Plasma into Peripheral Vein, Percutaneous Approach (ICD-10-PCS; 2024-06-25)
PROC: 5A1221Z Performance of Cardiac Output, Continuous (ICD-10-PCS; 2024-06-25)
PROC: 30233R1 Transfusion of Nonautologous Platelets into Peripheral Vein, Percutaneous Approach (ICD-10-PCS; 2024-06-25)
DX: I35.1 Nonrheumatic aortic (valve) insufficiency (principal); I50.43 Acute on chronic combined systolic (congestive) and diastolic (congestive) heart failure; T81.11XA Postprocedural cardiogenic shock, initial encounter; I42.8 Other cardiomyopathies; Q25.43 Congenital aneurysm of aorta; D62 Acute posthemorrhagic anemia; D68.8 Other specified coagulation defects; J98.11 Atelectasis; K57.30 Diverticulosis of large intestine without perforation or abscess without bleeding; I95.9 Hypotension, unspecified; I77.810 Thoracic aortic ectasia; M10.9 Gout, unspecified; I25.10 Atherosclerotic heart disease of native coronary artery without angina pectoris; E78.5 Hyperlipidemia, unspecified; E87.70 Fluid overload, unspecified; I48.0 Paroxysmal atrial fibrillation; E86.1 Hypovolemia; Y83.2 Surgical operation with anastomosis, bypass or graft as the cause of abnormal reaction of the patient, or of later complication, without mention of misadventure at the time of the procedure; Z79.82 Long term (current) use of aspirin; Z79.899 Other long term (current) drug therapy
CPT/HCPCS: 88305; 88311; 93308; 36415; 71045; 71046; 80048; 80053; 81003; 82248; 82330; 82565; 82805; 82810; 82947; 82962; 83036; 83735; 84132; 84302; 84520; 85014; 85018; 85025; 85027; 85049; 85384; 85610; 85730; 86850; 86900; 86901; 86920; 87070; 93005; 93312; 93320; 93321; 93325; 94002; J2597; J2916; P9059; P9073; Q9950

== ENCOUNTER 2024-08-20 14:07 | Outpatient (RCR) | payer MEDICARE, OTHER, SELFPAY ==
[2024-08-07 14:04] LABS: HDL Cholesterol 84 mg/dl; LDL Cholesterol, Calculated 46 mg/dl; Total Cholesterol 140 mg/dl (50-199); Triglyceride 53 mg/dl (10-149); Very Low Density Lipoprotein 10 mg/dl (0-30)
== END 2024-08-20 23:59 | disposition home or self-care (01) ==
LOC: CRHB 14:07
PROVIDERS: ATTENDING PHYSICIAN Internal Medicine Cardiovascular Disease; FAMILY PHYSICIAN Family Medicine
DX: I25.10 Atherosclerotic heart disease of native coronary artery without angina pectoris (principal); Z95.4 Presence of other heart-valve replacement (principal)
CPT/HCPCS: 36415; 80061; G0422; G0423

== ENCOUNTER 2024-09-21 14:55 | Outpatient (RCR) | payer MEDICARE, OTHER, SELFPAY | END 2024-09-21 23:59 | disposition home or self-care (01) | LOC: CRHB 14:55 | PROVIDERS: ATTENDING PHYSICIAN Internal Medicine Cardiovascular Disease; FAMILY PHYSICIAN Family Medicine | DX: I25.10 Atherosclerotic heart disease of native coronary artery without angina pectoris (principal); Z95.4 Presence of other heart-valve replacement | CPT/HCPCS: G0422; G0423 ==

== ENCOUNTER 2024-10-19 13:36 | Outpatient (RCR) | payer MEDICARE, OTHER, SELFPAY | END 2024-10-19 23:59 | disposition home or self-care (01) | LOC: CRHB 13:36 | PROVIDERS: ATTENDING PHYSICIAN Internal Medicine Cardiovascular Disease; FAMILY PHYSICIAN Family Medicine | DX: I25.10 Atherosclerotic heart disease of native coronary artery without angina pectoris (principal); Z95.4 Presence of other heart-valve replacement | CPT/HCPCS: 71046; G0422; G0423 ==

== ENCOUNTER 2024-11-02 16:34 | Outpatient (RCR) | payer MEDICARE, OTHER, SELFPAY | END 2024-11-02 16:39 | disposition home or self-care (01) | LOC: CRHB 16:34 | PROVIDERS: ATTENDING PHYSICIAN Internal Medicine Cardiovascular Disease; FAMILY PHYSICIAN Family Medicine | DX: Z95.4 Presence of other heart-valve replacement (principal); Z95.1 Presence of aortocoronary bypass graft (principal); Z95.2 Presence of prosthetic heart valve | CPT/HCPCS: 71250; G0422; G0423 ==

== ENCOUNTER → 2025-01-02 11:17 | Outpatient (REF) | payer MEDICARE, OTHER, SELFPAY | LOC: HWRCS 11:17 | PROVIDERS: ATTENDING PHYSICIAN Internal Medicine Cardiovascular Disease; FAMILY PHYSICIAN Family Medicine | DX: Z95.2 Presence of prosthetic heart valve (principal); I42.8 Other cardiomyopathies | CPT/HCPCS: 93306 ==

== ENCOUNTER → 2025-02-27 14:08 | Outpatient (REF) | payer MEDICARE, OTHER, SELFPAY | LOC: HWRAD 14:08 | PROVIDERS: ATTENDING PHYSICIAN Family Medicine | DX: E04.1 Nontoxic single thyroid nodule (principal) | CPT/HCPCS: 76536 ==